=== PATIENT | female | born 2000 | race Caucasian/White ===

== ENCOUNTER 2021-04-08 22:16 | Emergency (ER) | payer BC, OTHER | END 2021-04-09 01:40 | disposition home or self-care (01) | LOC: JD.ED 22:16 | DX: U07.1 COVID-19 (principal); R00.0 Tachycardia, unspecified; Z88.0 Allergy status to penicillin | CPT/HCPCS: 36415; 71045; 71045-26; 80048; 85007; 85027; 86140; 87651-QW; 87804; 93005; 93010; 99284; 99284-25 ==

== ENCOUNTER 2021-07-14 09:45 | Emergency (ER) | payer OTHER ==
[2021-07-14] MEDS ORDERED: Metoclopramide 10 MG/2 ML SDV IVPUSH ONE (10:06)
[2021-07-14] MEDS ORDERED: HYDROmorphone 0.5 MG/0.5 ML Syringe IVPUSH ONE (10:06)
[2021-07-14] MEDS ORDERED: Dextrose 5%-Lactated Ringers 1,000 ML IV SCH (10:15)
[2021-07-14] MEDS ORDERED: Ketorolac 30 MG/ML SDV IVPUSH SCH (10:15)
[2021-07-14] MEDS ORDERED: cefTRIAXone 2 GM in Sodium Chloride 0.9% 100 ML IV ONE (11:47)
[2021-07-14] MEDS ORDERED: Dextrose 5%-0.9% NaCl with KCl 1,000 ML IV SCH (12:00)
[2021-07-14] MEDS ORDERED: Ondansetron 4 MG/2 ML SDV IVPUSH ONE (14:38)
== END 2021-07-14 14:50 | disposition home or self-care (01) ==
LOC: JD.ED 09:45
DX: R11.2 Nausea with vomiting, unspecified (principal); J02.9 Acute pharyngitis, unspecified; E87.2 Acidosis; E87.6 Hypokalemia; E86.9 Volume depletion, unspecified; Z88.0 Allergy status to penicillin; Z88.2 Allergy status to sulfonamides; Z72.0 Tobacco use
CPT/HCPCS: 36415; 80053; 81001; 82009; 83605; 84703; 85025; 86140; 86308; 87651; 96365; 96366; 96368; 96375; 99284; J0696; J1170; J1885; J2405; J2765; J3480; J7121

== ENCOUNTER 2021-07-16 09:09 | Emergency (ER) | payer OTHER ==
[2021-07-16] MEDS ORDERED: Sodium Chloride 0.9% 1,000 ML IV STA (11:07)
[2021-07-16 12:23] LABS: CORONAVIRUS COVID-19 NAA NEGATIVE (NEGATIVE)
== END 2021-07-16 13:40 | disposition home or self-care (01) ==
LOC: JD.ED 09:09
DX: B00.2 Herpesviral gingivostomatitis and pharyngotonsillitis (principal); R11.2 Nausea with vomiting, unspecified; Z88.0 Allergy status to penicillin; Z88.2 Allergy status to sulfonamides; Z86.16 Personal history of COVID-19; Z20.822 Contact with and (suspected) exposure to COVID-19
CPT/HCPCS: 0240U; 36415; 80053; 85025; 86140; 99283; J7030